=== PATIENT | male | born 1955 | race African-American/Black ===

== ENCOUNTER → 2017-01-30 | Outpatient (CLI) | payer BC ==
[~2017-01-30] MED LIST: REGADENOSON 0.4 MG/5 ML DISP.SYRIN. IV ONE
--- NOTE | 2017-01-30 13:59 | PCVCIMAG ---
APPROVED REPORT Exam: Nuclear Stress Test Indication: Abn EKG, Pre op Patient Location: Out Patient Stress Nurse: Cindy Delgado RN, HARRY Brewer Tech:Declan Beverly NMTCB Ht: 5 ft 8 in Wt: 200 lbs BSA: 2.04 m2 HR: 70 bpm BP: 149/93 mmHg BMI: 30.4 Rhythm: NSR Medical History Medical History: Age, Hyperlipidmia, Allergies: NKDA NM EXAM: Myocardial Perfusion REST/STRESS Imaging Protocol: Rest Tc-99m/Stress Tc-99m 1 day Resting Data Rest SPECT myocardial perfusion imaging was performed in supine position 45 minutes following the intravenous injection of 10.7 mCi of Tc-99m Sestamibi. Time of rest injection: 914 Date: 01/30/2017 Pharmacologic Stress Pharmacologic stress test was performed by injecting Regadenoson 0.4 mg IV push followed by the intravenous injection of 29.2 mCi of Tc-99m Sestamibi. Time of stress injection: 1114 Date: 01/30/2017 The images were gated to evaluate regional wall motion and calculate left ventricular ejection fraction. Study Quality Study: Good Study Data Post stress, the left ventricular ejection was 71%.. SSS: 0 SRS: 0 SDS: 0 TID = 0.80. Perfusion No evidence of stress induced ischemia or prior myocardial infarction. Wall Motion Normal left ventricular size and function with no regional wall motion abnormalities. Nuclear Conclusion No evidence of stress induced ischemia or prior myocardial infarction. Normal left ventricular size and function with no regional wall motion abnormalities. Post stress, the left ventricular ejection was 71%.. No prior study available for comparison. Interpreted by: Luis Eduardo Soto MD Electronically Approved: 01/30/2017 13:44:12 Stress Test Details Stress Test: Pharmacologic stress was paired with low level exercise. HR Resting HR: 70 bpmMax Heart Rate (APMHR): 157 bpm Max HR Achieved: 114 bpmTarget HR (85% APMHR): 133 bpm % of APMHR: 72 Recovery HR: 86 bpm BP Resting BP: 149/93 mmHg Max BP: 178/78 mmHg ECG Resting ECG: Sinus Rhythm with nonspecific T wave abnormality Stress ECG: Sinus Rhythm Maximum ST Deviation: 0 mm Arrhythmia: None Recovery ECG: Sinus Rhythm Recovery ST Change: None Recovery ST Deviation: 0 mm Clinical Reason for Termination: Completed protocol Stress Symptoms: Leg Fatigue Symptoms resolved with caffeine. Stress ECG Conclusion ECG: Non-ischemic Clinical: Non-ischemic <Conclusion> ECG: Non-ischemic Clinical: Non-ischemic
== END | disposition home or self-care (01) ==
LOC: PCVCIMAG 08:55
PROVIDERS: ATTEND Internal Medicine
DX: Z01.810 Encounter for preprocedural cardiovascular examination (principal); R94.31 Abnormal electrocardiogram [ECG] [EKG]; E78.5 Hyperlipidemia, unspecified; K52.9 Noninfective gastroenteritis and colitis, unspecified; Z79.899 Other long term (current) drug therapy
CPT/HCPCS: 78452; 93017; A9500; J2785